=== PATIENT | female | born 1985 | race Caucasian/White ===

== ENCOUNTER 2017-01-04 08:47 | Emergency (ER) | payer OTHER ==
[~2017-01-04] VITALS: Ht 160 cm; Wt 86.2 kg
[~2017-01-04 08:47] MED LIST: IBUPROFEN800 MG PO; PRENATAL1 TA2 PO
[2017-01-04 09:18] LABS: ABSOLUTE BASOPHIL COUNT 0 /CUMM (0.0-0.2); ABSOLUTE EOSINOPHIL COUNT 0.1 /CUMM (0.0-0.7); ABSOLUTE GRANULOCYTE CT 5.7 /CUMM (1.4-6.5); ABSOLUTE LYMPH COUNT 2.6 /CUMM (1.2-3.4); ABSOLUTE MONOCYTE COUNT 0.4 /CUMM (0.10-0.60); BASOPHIL % 0.3 % (0.0-2.0); EOSINOPHIL % 1.2 % (0-5); GRANULOCYTE % 65.2 % (42.2-75.2); HEMATOCRIT 41.7 % (37-47); MEAN CORPUSCULAR HGB CONC 33.2 G/DL (33.0-37.0); MEAN CORPUSCULAR VOLUME 84.5 FL (81.0-99.0); MEAN PLATELET VOLUME 8.3 FL (7.4-10.4); PLATELET COUNT 258 /CUMM (130-400); RBC DISTRIBUTION WIDTH 13.5 % (11.5-14.5); RED BLOOD CELL CT 4.93 /CUMM (4.20-5.40); WHITE BLOOD CELL COUNT 8.7 /CUMM (4.8-10.8)
--- NOTE | 2017-01-04 09:25 | ED GI/GU/ABDOMINAL COMPLAINT ---
History of Present Illness General Chief Complaint: General Adult Stated Complaint: BLEEDING 8WKS PREG Source: patient, family Exam Limitations: no limitations Vital Signs & Intake/Output Vital Signs & Intake/Output Vital Signs Date Time Temp Pulse Resp B/P Pulse O2 O2 Flow FiO2 Ox Delivery Rate 01/04 1155 88 18 137/84 98 Room Air 01/04 0930 Room Air Room Air 01/04 0851 96.9 100 18 139/94 99 Room Air Allergies Coded Allergies: Sulfa (Sulfonamide Antibiotics) (Intermediate, HIVES 01/04/17) Reconcile Medications PNV95/FERROUS FUMARATE/FA ( Formula Tablet) 28 MG IRON-800 MCG TABLET 1 TAB PO DAILY VITAMIN SUPPORT Thyroid,Pork ([place] Thyroid) 60 MG TABLET 1 TAB PO EOD HYPOTHYROIDISM ( Reported) Thyroid,Pork ([place] Thyroid) 90 MG TABLET 1 TAB PO EOD HYPOTHYROIDISM ( Reported) Triage Note: PT TO ED FOR VAG BLEEDING, REPORTING SHE STARTED TO NOTICE SOME SPOTTING THIS AM, CURRENTLY 8 WEEKS . . OB [facility] [place]. Triage Nurses Notes Reviewed? yes ? Y Is pt currently ? No HPI: Patient is approximately 8 weeks . 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 This patient is . This morning she noted some vaginal spotting. There is no clots. She denies any pain. There is no vaginal discharge. Patient comes in for evaluation. Past History Travel History Traveled to [place] past 21 day No Medical History Any Pertinent Medical History? 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 No Review of Systems Review of Systems Constitutional: Reports: no symptoms. Respiratory: Reports: no symptoms. Cardiovascular: Reports: no symptoms. Genitourinary: Reports: see HPI. Musculoskeletal: Reports: no symptoms. Neurological/Psychological: Reports: no symptoms. Immunologic/Allergic: Reports: no symptoms. Physical Exam Physical Exam General Appearance: well developed/nourished, alert, awake Eyes: Bilateral: PERRL, EOMI. Neck: normal inspection, supple Respiratory: normal breath sounds, chest non-tender, no respiratory distress, lungs clear Cardiovascular: regular rate/rhythm, normal peripheral pulses Gastrointestinal: normal bowel sounds, soft, non-tender, no organomegaly Extremities: normal range of motion Neurologic/Psych: no motor/sensory deficits, awake, alert, oriented x 3, normal gait, normal mood/affect Core Measures ACS in differential dx? No Severe Sepsis Present: No Septic Shock Present: No Progress Differential Diagnosis: ectopic , intrauterine , threatened AB , UTI/pyelo Plan of Care: Orders Procedure Date/time Status URINALYSIS 01/04 854 Complete HUMAN BETA HCG TITRE 01/04 854 Complete COMPREHENSIVE METABOLIC PANEL 01/04 854 Complete CBC WITHOUT DIFFERENTIAL 01/04 854 Complete TYPE & SCREEN (NOT X-MATCH) 01/04 854 Complete Laboratory Tests 01/04/17 0907: Anion Gap 8, Estimated GFR > 60, BUN/Creatinine Ratio 15.7, Glucose 108 H, Calcium 9.6, Total Bilirubin 0.5, AST 32, ALT 42, Alkaline Phosphatase 68, Total Protein 7.1, Albumin 4.2, Globulin 2.9, Albumin/Globulin Ratio 1.4, Beta HCG, Quant 5986.8, CBC w Diff NO MAN DIFF REQ, RBC 4.93, MCV 84.5, MCH 28.0, RDW 13.5 , MPV 8.3, Gran % 65.2, Lymphocytes % 29.2, Monocytes % 4.1, Eosinophils % 1.2, Basophils % 0.3, Absolute Granulocytes 5.7, Absolute Lymphocytes 2.6, Absolute Monocytes 0.4, Absolute Eosinophils 0.1, Absolute Basophils 0, PUBS MCHC 33.2, Urine Color YEL, Urine Clarity CLEAR, Urine pH 6.0, Ur Specific [place] 1.010, Urine Protein NEG, Urine Ketones NEG, Urine Nitrite NEG, Urine Bilirubin NEG, Urine Urobilinogen 0.2, Ur Leukocyte Esterase NEG, Ur Microscopic SEDIMENT EXAMINED, Urine RBC 15-25 H, Ur Epithelial Cells FEW, Urine Hemoglobin LARGE H , Urine Glucose NEG Diagnostic Imaging: Viewed by Me: Ultrasound. Discussed w/RAD: Ultrasound. Radiology Impression: PATIENT: HODAN MCKEON PRESENT AGE: 31 PATIENT ACCOUNT NO: [id number] : 85 LOCATION: [facility] ORDERING PHYSICIAN: MADISON ROSE MD SERVICE DATE: 01/04/17 EXAM TYPE: US - US TRANSVAG EXAMINATION: US OBSTETRICAL ULTRASOUND CLINICAL INFORMATION: Vaginal bleeding for one day. Orally . COMPARISON: None. LMP: 11/12/2016. Gestational age by maternal dates is 7 weeks 4 days. Estimated date of delivery by maternal dates is 08/19/2017. TECHNIQUE: Ultrasound of the maternal pelvis is performed using transabdominal and transvaginal transducers. Transvaginal imaging is performed due to inadequate visualization transabdominally. M-mode Doppler is also performed. FINDINGS: There is an intrauterine decidual reaction with intrauterine gestational sac. The mean sac size 1.3 cm consistent with 6 weeks 0 days. Neither a yolk sac or embryo is demonstrated. There is some fluid in the endocervix consistent with history of bleeding. MATERNAL ADNEXA: The right maternal ovary measures 1.6 x 2.0 x 2.8 cm. There is a right intraovarian cyst measuring 1.2 x 1.4 cm. The left ovary is not visualized. There is no visible pelvic mass or pelvic ascites. IMPRESSION: 1. Single intrauterine gestational sac with mean sac dimension 1.3 cm (6 weeks 0 days). No visible yolk sac or embryo. 2. No visible maternal adnexal mass or pelvic ascites. 3. Recommend serial follow-up beta hCG and follow-up ultrasound to confirm developing intrauterine and exclude missed or ectopic. DICTATED BY: OLEG COURTNEY MD DATE/TIME DICTATED:01/04/171207 BLOCK LAYER:PEDRITO DATE/TIME TRANSCRIBED:01/04/171207 CONFIDENTIAL, DO NOT COPY WITHOUT APPROPRIATE AUTHORIZATION. <Electronically signed in Other Vendor System> SIGNED BY: OLEG COURTNEY MD 01/04/17 1220 Initial ED EKG: none Departure Departure Disposition: HOME OR SELF CARE Condition: Stable Clinical Impression Primary Impression: Threatened miscarriage Referrals: WILY PERDUE MD (PCP/Family) Additional Instructions: TAKE IT EASY OVER THE NEXT FEW DAYS FOLLOW UP WITH YOUR DOCTOR TOMORROW REUTRN FOR ANY CONCERNS Departure Forms: Customer Survey General Discharge Information
[2017-01-04] MEDS ORDERED: ARMOUR THYROID60 M1 PO (09:26)
[2017-01-04] MEDS ORDERED: ARMOUR THYROID90 M1 PO (09:27)
[2017-01-04 11:55] VITALS: BP 137/84
--- NOTE | 2017-01-04 12:20 | ULTRASOUND REPORT ---
EXAMINATION: US OBSTETRICAL ULTRASOUND CLINICAL INFORMATION: Vaginal bleeding for one day. Orally . COMPARISON: None. LMP: 11/12/2016. Gestational age by maternal dates is 7 weeks 4 days. Estimated date of delivery by maternal dates is 08/19/2017. TECHNIQUE: Ultrasound of the maternal pelvis is performed using transabdominal and transvaginal transducers. Transvaginal imaging is performed due to inadequate visualization transabdominally. M-mode Doppler is also performed. FINDINGS: There is an intrauterine decidual reaction with intrauterine gestational sac. The mean sac size 1.3 cm consistent with 6 weeks 0 days. Neither a yolk sac or embryo is demonstrated. There is some fluid in the endocervix consistent with history of bleeding. MATERNAL ADNEXA: The right maternal ovary measures 1.6 x 2.0 x 2.8 cm. There is a right intraovarian cyst measuring 1.2 x 1.4 cm. The left ovary is not visualized. There is no visible pelvic mass or pelvic ascites. IMPRESSION: 1. Single intrauterine gestational sac with mean sac dimension 1.3 cm (6 weeks 0 days). No visible yolk sac or embryo. 2. No visible maternal adnexal mass or pelvic ascites. 3. Recommend serial follow-up beta hCG and follow-up ultrasound to confirm developing intrauterine and exclude missed or ectopic.
== END 2017-01-04 13:06 ==
LOC: ERH 08:47
PROVIDERS: Emergency Medicine
DX: O20.0 Threatened abortion (principal); Z3A.08 8 weeks gestation of pregnancy
CPT/HCPCS: 76817; 81001

== ENCOUNTER → 2017-12-04 | Day surgery (SDC) | payer OTHER ==
[~2017-12-04] MED LIST changes: +ARMOUR THYROID60 M1 PO; +ARMOUR THYROID90 M1 PO
[2017-12-04 08:17] LABS: ABSOLUTE BASOPHIL COUNT 0 /CUMM (0.0-0.2); ABSOLUTE EOSINOPHIL COUNT 0.1 /CUMM (0.0-0.7); ABSOLUTE GRANULOCYTE CT 5.5 /CUMM (1.4-6.5); ABSOLUTE LYMPH COUNT 2.6 /CUMM (1.2-3.4); ABSOLUTE MONOCYTE COUNT 0.4 /CUMM (0.10-0.60); BASOPHIL % 0.4 % (0.0-2.0); EOSINOPHIL % 1.6 % (0-5); GRANULOCYTE % 62.9 % (42.2-75.2); HEMATOCRIT 38.9 % (37-47); MEAN CORPUSCULAR HGB 28.5 PG (27.0-31.0); MEAN CORPUSCULAR HGB CONC 33.4 G/DL (33.0-37.0); MEAN CORPUSCULAR VOLUME 85.4 FL (81.0-99.0); MEAN PLATELET VOLUME 8.6 FL (7.4-10.4); PLATELET COUNT 256 /CUMM (130-400); RBC DISTRIBUTION WIDTH 13.7 % (11.5-14.5); RED BLOOD CELL CT 4.55 /CUMM (4.20-5.40); WHITE BLOOD CELL COUNT 8.7 /CUMM (4.8-10.8)
--- NOTE | 2017-12-04 10:08 | Operative Report ---
Operative/Inv Procedure Report Surgery Date: 12/04/17 Name of Procedure: Suction dilation and curettage Pre-Operative Diagnosis: Missed Post-Operative Diagnosis: Same Estimated Blood Loss: less than 50ml Surgeon/Recovery Manager: Heriberto York MD Anesthesia: moderate sedation IV Fluids: Lactated Ringer's Urine Output: 100 mL clear urine at the beginning of the procedure Specimens: POC Complications: None Condition: Stable Operative Indication: 32-year-old, intrauterine detected at 7 weeks, no embryo and heart. Operative/Procedure Note Note: The patient was taken to the operating room where moderate sedation was obtained without difficulty. Patient was then examined under anesthesia and found to have a 6 weeks anteverted uterus with normal adnexa. . She was then placed in the dorsal lithotomy position and prepared and draped in the usual sterile fashion. A straight cath was used to empty the bladder. A bivalve speculum was then placed in the patient's vagina and the anterior lip of the cervix grasped with the single-toothed tenaculum. An 7 mm suction curet advanced gently to the uterine fundus. The suction device was then activated and the curet rotated to clear the uterus of products of conception. Sharp curette was then performed until a gritty texture was noted. The suction curet was then reintroduced to clear the uterus of all remaining products of conception. There was minimal bleeding noted and the tenaculum removed with good hemostasis noted. Patient tolerated the procedure well. Laps, instruments counts were correct. The patient was taken to the recovery room in stable condition.
== END ==
LOC: STS 03:49
PROVIDERS: Obstetrics & Gynecology
DX: O02.1 Missed abortion (principal); E03.9 Hypothyroidism, unspecified
CPT/HCPCS: 88305; J2250